=== PATIENT | male | born 1995 | race Caucasian/White ===

== ENCOUNTER 2024-10-16 14:29 | Emergency (ER) | payer OTHER ==
[2024-10-16] MEDS ORDERED: Ibuprofen 200 MG TAB ONE (15:46)
== END 2024-10-16 15:52 | disposition home or self-care (01) ==
LOC: ERS 14:29
DX: U07.1 COVID-19 (principal); F17.290 Nicotine dependence, other tobacco product, uncomplicated; Z79.899 Other long term (current) drug therapy
CPT/HCPCS: 87081; 87428; 87430; 99283